=== PATIENT | female | born 2000 | race Caucasian/White ===

== ENCOUNTER 2021-11-22 22:33 | Emergency (ER) | payer BC ==
[~2021-11-22] VITALS: Ht 160 cm; Wt 63.0 kg
[2021-11-23] MEDS ORDERED: AMOXICILLIN 500 MG CAPSULE PO ONE (00:15)
[2021-11-23] MEDS ORDERED: KETOROLAC 30MG/ML VIAL IM ONE (00:15)
[2021-11-23] MEDS ORDERED: AMOX-494 MT (00:21)
[2021-11-23] MEDS ORDERED: IBUP-2029 MT (00:21)
[2021-11-23 01:24] VITALS: BP 115/68
[2021-12-07] MEDS ORDERED: CLIN-194 MT (16:20)
== END 2021-11-23 01:24 | disposition home or self-care (01) ==
LOC: ER 22:33
DX: J02.9 Acute pharyngitis, unspecified (principal)
CPT/HCPCS: 81025; 87070; 87430; 96372; 99283; J1885

== ENCOUNTER 2021-12-07 11:26 | Emergency (ER) | payer BC ==
[~2021-12-07] VITALS: Ht 165.1 cm; Wt 61.0 kg
[~2021-12-07 11:26] MED LIST: AMOX-494 MT; IBUP-2029 MT
[2021-12-07] MEDS ORDERED: ACETAMINOPHEN 325MG TABLET PO STA (11:58)
[2021-12-07] MEDS ORDERED: SODIUM CHLORIDE 0.9% 1000ML BAG (SEPSIS BOLUS) IV ONE (12:00)
[2021-12-07] MEDS ORDERED: DEXAMETHASONE 10 MG/ML VIAL IV ONE (12:45)
[2021-12-07 12:52] LABS: HEMOGLOBIN. 12.5 g/dL (12.0-16.0); MEAN CORPUSCULAR HEMOGLOBIN 29.4 pg (28.0-32.0); MEAN CORPUSCULAR VOLUME 89.2 fL (81.0-99.0); MEAN PLATELET VOLUME 8.6 fl (7.4-10.4); PLATELET 238 x1000/uL (130-400); RED BLOOD CELL COUNT 4.26 mill/uL (4.2-5.4); RED CELL DISTRIBUTION WIDTH 13.8 % (11.6-14.6)
[2021-12-07 13:00] LABS: CHLORIDE 108 mEq/L (98-107)
[2021-12-07 13:07] LABS: CLARITY URINE CLOUDY (CLEAR); COLOR URINE YELLOW (YELLOW); KETONES URINE TRACE (NEGATIVE); LEUKOCYTE ESTERASE URINE NEGATIVE (NEGATIVE); NITRITE URINE NEGATIVE (NEGATIVE); OCCULT BLOOD URINE NEGATIVE (NEGATIVE); PH URINE 7.5 (4.5-8.0); PROTEIN URINE NEGATIVE (NEGATIVE); SPECIFIC GRAVITY URINE 1.021 (1.005-1.030)
[2021-12-07 13:33] LABS: HCG SCREEN NEGATIVE
[2021-12-07 13:46] LABS: PLATELET ESTIMATE NORMAL
[2021-12-07] MEDS ORDERED: IOHEXOL-300 100 ML BOTTLE ONE (14:28)
[2021-12-07] MEDS ORDERED: VISCOUS LIDOCAINE 2% 15 ML UDC MM STA (15:00)
[2021-12-07 15:31] LABS: MONOTEST NEGATIVE (NEGATIVE)
[2021-12-07] MEDS ORDERED: CLIN300C12 MT (16:20)
[2021-12-07] MEDS ORDERED: TOPUD MT (16:20)
[2021-12-07 16:30] VITALS: BP 119/65
== END 2021-12-07 16:46 | disposition home or self-care (01) ==
LOC: ER 11:26 → CANBEDREQ 21:02
DX: J36 Peritonsillar abscess (principal)
CPT/HCPCS: 36415; 42700; 70491; 71045; 80053; 81003; 81025; 83605; 84145; 84703; 85025; 86308; 87040; 96361; 96374; 99285; J1100; J7030; Q9967